=== PATIENT | female | born 1990 | race African-American/Black ===

== ENCOUNTER 2017-01-27 12:20 | Emergency (ER) | payer SELFPAY ==
[~2017-01-27 12:20] MED LIST: METO10TA81 PO
[2017-01-27 12:34] VITALS: BP 105/55
[2017-01-27] MEDS ORDERED: METH-37 PO (13:08)
--- NOTE | 2017-01-27 13:08 | PHYS DOC ---
Past Medical History Past Medical History: No Pertinent History Past Surgical History: Tonsillectomy, Tubal ligation Smoking: Cigar Alcohol Use: None Drug Use: Marijuana Adult General Chief Complaint Chief Complaint: HAND PROBLEM HPI HPI Patient is a 26 year old female who presents with right arm pain and numbness for 2 weeks. She reports pain in the right shoulder, wrist, and thumb with numbness in the right upper arm laterally and in the right thumb. She denies any injury. 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 She also works bent over at her seat. She arrives to the emergency department wearing a velcro wrist brace that helps somewhat with the pain. She denies pain in her neck. She has been taking ibuprofen without relief of her pain. She is right-hand dominant. She does not have a PCP. Review of Systems Review of Systems Constitutional: Denies fever or chills. [] Musculoskeletal: Denies back pain or neck pain. Reports Integument: Denies rash or skin lesions. [] Neurologic: Denies headache, focal weakness or sensory changes. [] Endocrine: Denies polyuria or polydipsia. [] Psych: Denies anxiety or depression. [] All systems reviewed and negative unless otherwise stated in the HPI. Allergies Allergies Allergies Coded Allergies Type Severity Reaction Last Updated Verified banana Allergy Unknown swelling 05/27/14 Yes sulfamethoxazole Allergy Unknown rash 05/27/14 Yes trimethoprim Allergy Unknown rash 05/27/14 Yes Physical Exam Physical Exam Constitutional: Well developed, well nourished, no acute distress, non-toxic appearance. [] HENT: Normocephalic, atraumatic, oropharynx moist. [] Eyes: PERRLA, EOMI, conjunctiva normal, no discharge. [] Neck: Normal range of motion, no tenderness, supple, no stridor. There is spasm of the paraspinal muscles, particularly on the right side. Skin: Warm, dry, no erythema, no rash. [] Back: No midline tenderness, no CVA tenderness. [] Extremities: There is tenderness over the right trapezius with muscle spasm, right wrist dorsum, and the right 1st MCP joint. Decreased flexion of the wrist , otherwise normal ROM for RUE. 2+ radial and ulnar pulses. Less than 2 second capillary refill in the fingers. Light touch sensation intact distally and proximally. The patient was unable to perform the Phalen maneuver due to pain with flexion of the wrist. Negative Tinel sign. Neurologic: Alert and oriented X 3, normal motor function, normal sensory function, no focal deficits noted. [] Psychologic: Affect normal, judgement normal, mood normal. [] Current Patient Data Vital Signs Vital Signs Date Time Temp Pulse Resp B/P Pulse Ox O2 Delivery O2 Flow Rate FiO2 01/27/17 12:34 98.7 78 18 98 Room Air 98.7 EKG EKG [] Radiology/Procedures Radiology/Procedures [] Course & Med Decision Making Course & Med Decision Making Pertinent Labs and Imaging studies reviewed. (See chart for details) The patient presents with RUE pain and intermittent numbness without injury. On exam, she has spasms of the muscles of the neck and right shoulder. Her symptoms are consistent with cervical radiculopathy. She is provided with a Velcro thumb spica splint to decrease movement in her wrist and thumb to help with the pain in the wrist and thumb. She is discharged with prescription for Robaxin. She is instructed to apply heat, massage, and stretch. Return precautions were discussed. She verbalizes understanding and agrees with plan. Dragon Disclaimer Dragon Disclaimer This electronic medical record was generated, in whole or in part, using a voice recognition dictation system. Departure Departure Impression: Primary Impression: Arm pain, right Additional Impression: Cervical radiculopathy Disposition: HOME, SELF-CARE Condition: STABLE Referrals: NO PCP (PCP) Patient Instructions: Cervical Radiculopathy, [id number] Additional Instructions: Your pain and numbness are likely due to pressure on a nerve from tight muscles in your neck. This is called cervical radiculopathy. Please wear the provided wrist and thumb brace to decrease movement to help with your pain. Please take the prescribed muscle relaxer to help decrease the tension in your neck. Do not drive or operate heavy machinery while taking this medication. You may apply heat to the neck and shoulder muscles to help relax them as well. Practice gentle stretching and light massage. Please follow-up with a primary care provider within the next week if your symptoms continue. Return to the emergency department if you have any new or concerning symptoms. Scripts Methocarbamol (Robaxin)500 Mg [id number] Mg PO QID #20 TAB Prov:SURJIT LOPEZ 01/27/17 Problem Qualifiers SURJIT LOPEZ Jan 27, 2017 13:08
== END 2017-01-27 13:18 | disposition home or self-care (01) ==
LOC: ER 12:20
DX: M79.601 Pain in right arm (principal); M54.12 Radiculopathy, cervical region; M25.511 Pain in right shoulder; M25.531 Pain in right wrist; M79.644 Pain in right finger(s); F12.10 Cannabis abuse, uncomplicated; F17.210 Nicotine dependence, cigarettes, uncomplicated; Z88.1 Allergy status to other antibiotic agents; Z91.018 Allergy to other foods
CPT/HCPCS: 29125; 99283-25

== ENCOUNTER 2018-10-11 15:57 | Emergency (ER) | payer SELFPAY ==
[~2018-10-11] VITALS: Ht 154.9 cm; Wt 59.0 kg
[~2018-10-11 15:57] MED LIST changes: +METH-37 PO
[2018-10-11 16:14] VITALS: BP 112/78
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
[2018-10-11] MEDS ORDERED: MELO7.5T5 PO (17:22)
[2018-10-11] MEDS ORDERED: CYCL5TAB PO (17:22)
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
== END 2018-10-11 17:47 | disposition home or self-care (01) ==
LOC: ER 15:57
DX: M54.6 Pain in thoracic spine (principal); M54.5 Low back pain; Z88.1 Allergy status to other antibiotic agents; Z88.2 Allergy status to sulfonamides; Z91.018 Allergy to other foods; V43.52XA Car driver injured in collision with other type car in traffic accident, initial encounter; Y93.89 Activity, other specified; Y92.410 Unspecified street and highway as the place of occurrence of the external cause; Y99.8 Other external cause status
CPT/HCPCS: 72072; 72100; 99283

== ENCOUNTER 2018-10-14 10:47 | Emergency (ER) | payer SELFPAY ==
[~2018-10-14] VITALS: Ht 157.5 cm; Wt 56.7 kg
[~2018-10-14 10:47] MED LIST changes: +CYCL5TAB PO; +MELO7.5T5 PO
[2018-10-14 10:55] VITALS: BP 113/65
[2018-10-14] MEDS ORDERED: ORPHENADRINE CITRATE 60 MG/2 ML VIAL. IM ONE (12:15)
[2018-10-14] MEDS ORDERED: KETOROLAC 60 MG/2 ML VIAL. IM ONE (12:15)
[2018-10-14] MEDS ORDERED: HYDR-2761 PO (12:54)
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
== END 2018-10-14 12:58 | disposition home or self-care (01) ==
LOC: ER 10:47
DX: G43.909 Migraine, unspecified, not intractable, without status migrainosus (principal); M54.12 Radiculopathy, cervical region; F17.210 Nicotine dependence, cigarettes, uncomplicated; Z88.2 Allergy status to sulfonamides; Z88.1 Allergy status to other antibiotic agents; Z91.018 Allergy to other foods
CPT/HCPCS: 96372; 99283; J1885; J2360

== ENCOUNTER 2019-01-14 22:17 | Emergency (ER) | payer SELFPAY ==
[~2019-01-14] VITALS: Ht 157.5 cm; Wt 52.2 kg
[~2019-01-14 22:17] MED LIST changes: +HYDR-2761 PO
[2019-01-14 23:04] VITALS: BP 167/105
[2019-01-14] MEDS ORDERED: HYDR-2761 PO (23:17)
--- NOTE | 2019-01-14 23:18 | PHYS DOC ---
Past Medical History Past Medical History: No Pertinent History Past Surgical History: No Surgical History Alcohol Use: None Drug Use: Marijuana Adult General Chief Complaint Chief Complaint: TOOTH ACHE OR PAIN HPI HPI Patient is a 28 year old AA male who presents to emergency room with complaints of right upper dental pain. Patient states she was seen at [facility] yesterday and prescribed penicillin 500 mg 3 times a day and ibuprofen 800 mg 3 times a day. Patient states that ibuprofen is not helping her pain. She denies any fever, nausea, vomiting or difficulty breathing. Currently she rates her pain a 10 out of 10. She denies any alleviating factors. She denies any drainage from her tooth. Patient reports that she has a root canal scheduled at [facility] for next Thursday. Review of Systems Review of Systems Constitutional: Denies fever or chills [] Eyes: Denies changes HENT: see HPI Integument: Denies rash or skin lesions [] Neurologic: Denies headache, Current Medications Current Medications Current Medications Medications (Trade) Dose Ordered Sig/Priscilla Start Time Stop Time Status Last Admin Dose Admin Acetaminophen/ Hydrocodone Bitart (Lortab 5/325) 1 tab 1X ONCE 01/14/19 23:30 01/14/19 23:31 DC 01/14/19 23:31 1 TAB Allergies Allergies Allergies Coded Allergies Type Severity Reaction Last Updated Verified banana Allergy Severe swelling 01/14/19 Yes sulfamethoxazole Allergy Intermediate rash 01/14/19 Yes trimethoprim Allergy Intermediate rash 01/14/19 Yes Physical Exam Physical Exam Constitutional: Well developed, well nourished, no acute distress, non-toxic appearance, pt tearful. [] HENT: Normocephalic, atraumatic, bilateral external ears normal, oropharynx moist, no oral exudates, nose normal; left upper gingival tenderness, no visible abscess, mild swelling of left upper lip. [] Eyes: PERRLA, EOMI, conjunctiva normal, no discharge. [] Neck: Normal range of motion, no stridor. [] Lungs & Thorax: Respirations even and unlabored, no retractions Skin: Warm, dry, no erythema, no rash. [] Neurologic: Alert and oriented X 3, no focal deficits noted. [] Psychologic: Affect normal, judgement normal, mood normal. [] EKG EKG [] Radiology/Procedures Radiology/Procedures [] Course & Med Decision Making Course & Med Decision Making Pertinent Labs and Imaging studies reviewed. (See chart for details) Dx: dentalgia He was given 1 hydrocodone in the emergency department. She was encouraged to continue taking the amoxicillin and ibuprofen that was prescribed by [facility]. Prescription for hydrocodone 5/325 mg tablets was written #12. Return to the emergency room if she develops fever or symptoms worsen. Follow up with [facility] next Thursday for your canal as planned. [] Dragon Disclaimer Dragon Disclaimer This electronic medical record was generated, in whole or in part, using a voice recognition dictation system. Departure Departure Impression: Primary Impression: Dentalgia Disposition: HOME, SELF-CARE Condition: STABLE Referrals: NO PCP (PCP) Patient Instructions: Dental Pain, [id number] Additional Instructions: Prescription and use as directed. Return to the emergency room if she develops fever or symptoms worsen. Follow up with [facility] next Thursday for your root canal as planned. [] Scripts Hydrocodone Bit/Acetaminophen (HYDROCODONE-APAP 5-325 ) 1 Tab Tablet 1 TAB PO PRN Q6HRS PRN for PAIN for 3 Days, #12 TAB 0 Refills Prov: CLAIRE KISER BUMP GRADER OPERATOR 01/14/19 CLAIRE KISER BUMP GRADER OPERATOR Jan 14, 2019 23:18
[2019-01-14] MEDS ORDERED: HYDROcodone/APAP 5/325MG 1 TAB TABLET PO ONE (23:30)
== END 2019-01-14 23:32 | disposition home or self-care (01) ==
LOC: ER 22:17
DX: K08.89 Other specified disorders of teeth and supporting structures (principal); Z88.1 Allergy status to other antibiotic agents; Z88.2 Allergy status to sulfonamides; Z91.018 Allergy to other foods
CPT/HCPCS: 99283

== ENCOUNTER 2021-05-25 02:45 | Emergency (ER) | payer SELFPAY ==
[~2021-05-25] VITALS: Ht 157.5 cm; Wt 56.8 kg
[2021-05-25] MEDS ORDERED: BUTALB/APAP/CAFEIN 50/325/40MG TABLET. PO ONE (03:15)
--- NOTE | 2021-05-25 03:18 | RAD ---
XR CHEST 1V INDICATION: Reason: cough, COVID PUI / Spl. Instructions: / History: . COMPARISON STUDY: None. FINDINGS: Lungs: Normal lung volume. No pulmonary mass or consolidation. The tracheobronchial tree and hilar st ructures are normal. Pleura: No pleural effusion or pneumothorax. Heart and Mediastinum: The cardiomediastinal silhouette is normal. The great vessels of the thorax ar e normal. Bones and Soft Tissues: The bones and soft tissues are within normal limits. IMPRESSION: No acute cardiopulmonary process. Electronically signed by: Jose Alejandro Lubin MD (05/25/2021 3:15 AM) [facility]
[2021-05-25 03:59] VITALS: BP 128/86
[2021-05-25] MEDS ORDERED: BUTA1TAB23 PO (04:10)
[2021-05-25] MEDS ORDERED: ONDA4TAB12 PO (04:10)
--- NOTE | 2021-05-25 04:11 | PHYS DOC ---
Past Medical History Past Medical History: No Pertinent History Past Surgical History: No Surgical History, Tonsillectomy Smoking Status: Current Every Day Smoker Alcohol Use: None Drug Use: Marijuana Social History Narrative: over 24/hr ago General Adult EDM: Chief Complaint: MULTIPLE COMPLAINTS HPI: HPI: Patient is a 31 year old [f__sex] who presents with [] Review of Systems: Review of Systems: Constitutional: Denies fever or chills. [] Eyes: Denies change in visual acuity. [] HENT: Denies nasal congestion or sore throat. [] Respiratory: Denies cough or shortness of breath. [] Cardiovascular: Denies chest pain or edema. [] GI: Denies abdominal pain, nausea, vomiting, bloody stools or diarrhea. [] : Denies dysuria. [] Musculoskeletal: Denies back pain or joint pain. [] Integument: Denies rash. [] Neurologic: Denies headache, focal weakness or sensory changes. [] Endocrine: Denies polyuria or polydipsia. [] Lymphatic: Denies swollen glands. [] Psychiatric: Denies depression or anxiety. [] Heart Score: Risk Factors: Risk Factors: DM, Current or recent (<one month) smoker, HTN, HLP, family history of CAD, obesity. Risk Scores: Score 0 - 3: 2.5% MACE over next 6 weeks - Discharge Home Score 4 - 6: 20.3% MACE over next 6 weeks - Admit for Clinical Observation Score 7 - 10: 72.7% MACE over next 6 weeks - Early Invasive Strategies Current Medications: Current Medications Medications (Trade) Dose Ordered Sig/Priscilla Start Time Stop Time Status Last Admin Dose Admin Acetaminophen/ Butalbital/ Caffeine (Fioricet) 1 tab 1X ONCE 05/25/21 03:15 05/25/21 03:16 DC 05/25/21 03:20 1 TAB Allergies: Allergies: Allergies Coded Allergies Type Severity Reaction Last Updated Verified banana Allergy Severe swelling 01/14/19 Yes sulfamethoxazole Allergy Intermediate rash 01/14/19 Yes trimethoprim Allergy Intermediate rash 01/14/19 Yes Physical Exam: PE: Constitutional: Well developed, well nourished, no acute distress, non-toxic appearance. [] HENT: Normocephalic, atraumatic, bilateral external ears normal, oropharynx moist, no oral exudates, nose normal. [] Eyes: PERRLA, EOMI, conjunctiva normal, no discharge. [] Neck: Normal range of motion, no tenderness, supple, no stridor. [] Cardiovascular:Heart rate regular rhythm, no murmur [] Lungs & Thorax: Bilateral breath sounds clear to auscultation [] Abdomen: Bowel sounds normal, soft, no tenderness, no masses, no pulsatile mas ses. [] Skin: Warm, dry, no erythema, no rash. [] Back: No tenderness, no CVA tenderness. [] Extremities: No tenderness, no cyanosis, no clubbing, ROM intact, no edema. [] Neurologic: Alert and oriented X 3, normal motor function, normal sensory function, no focal deficits noted. [] Psychologic: Affect normal, judgement normal, mood normal. [] Current Patient Data: Vital Signs: Vital Signs Date Time Temp Pulse Resp B/P (MAP) Pulse Ox O2 Delivery O2 Flow Rate FiO2 05/25/21 02:47 98.7 84 18 128/78 (125) 98 Room Air 98.7 EKG: EKG: [] Radiology/Procedures: Radiology/Procedures: [] Course & Med Decision Making: Course & Med Decision Making Pertinent Labs and Imaging studies reviewed. (See chart for details) [] Dragon Disclaimer: [facility] Disclaimer: This electronic medical record was generated, in whole or in part, using a voice recognition dictation system. Departure Departure Impression: Primary Impression: Viral syndrome Additional Impressions: Headache Qualified Codes: R51.9 - Headache, unspecified Nausea Suspected 2019 novel coronavirus infection Disposition: HOME / SELF CARE / HOMELESS Condition: STABLE Referrals: NO PCP (PCP) Patient Instructions: Headache, FAQs, Nausea, Adult, [id number], Viral Syndrome Additional Instructions: You have been tested for or diagnosed with COVID-19. It is an infection caused by a new type of coronavirus. COVID-19 will cause cold-like or mild flu symptoms in most. It can cause more severe symptoms like problems breathing in some. There is no treatment for COVID-19. The body will clear the infection over time. Self-care will help to ease discomfort. Steps to Take: Self-Care Rest as needed. Healthy habits may help you feel better. Steps include: Choose healthy foods including fruits and vegetables. Drink water throughout the day. Get plenty of sleep each night. If you smoke, try to quit. It may ease breathing. Avoid alcohol. Keep Others Healthy The virus can spread to others. Droplets are released every time you sneeze or cough. The droplets can get into the mouth, nose, or eyes of people near you and lead to infection. To lower the chances of spreading COVID-19 to others: Stay at home until your doctor has said it is safe to leave. If you tested positive this will mean staying isolated until both of the following are true: At least 7 days have passed since the start of illness. You are free of fever for at least 72 hours without the use of medicine. During this time: - Avoid public areas, events, or transportation. Do not return to work or school until your doctor has said it is safe to do so. - Call ahead if you need to go to a medical center. Let them know you may have COVID-19. It will help them guide you where to go. They may also ask you to wear a facemask when you come to the office. - If you call for emergency medical services, let them know you may have COVID- 19. While at home: - Try to avoid close contact with others. Stay about 6 feet away. - If possible, spend most of your time in a separate room from others. - Use a face mask if you will be in close contact with others such as sharing a room or vehicle. - Have someone wipe down common surfaces in the home. Use household hydraulic controls technician every day on areas like doorknobs, counters, or sinks. - Cough or sneeze into a tissue. Throw the tissue away right after use. If a tissue is not available, cough or sneeze into your elbow. - Wash your hands often. Wash them after sneezing or coughing. Use soap and water and wash for at least 20 seconds. Alcohol based hand industrial sweeper cleaner can be used if soap and water is not available. - Do not prepare food for others. Avoid sharing personal items like forks, spoons, or toothbrushes. - Avoid close contact with pets while you are sick. There is no evidence of the virus passing to pets. This is a safety step until more is known about this virus. Isolation can be frustrating. Social interaction can help. Keep in touch with friends and family through phone and tech options. You can still interact with others in your home, just keep a safe distance of about 6 feet. Follow-up: Your doctors office will check in with you to see if there are any changes in your health. You may be asked to keep track of symptoms to share with them. They will also let you know when you are clear to be in public again. Problems to Look Out For: Contact your doctor if your recovery is not going as you expect. Get emergency care if you have problems such as: - Trouble breathing - Nonstop chest pain or pressure - Changes in awareness, confusion, or problems waking - Lips or face have bluish color - Worsening of symptoms If you think you have an emergency, call for emergency medical services right away. As taken from [facility] Butalb/Acetaminophen/Caffeine ([id number]-VCOY 50-325-40) 1 Each Tablet 1 EACH PO Q6HRS PRN for HEADACHE, #10 TAB Prov: STEVEN ORDOÑEZ DO 05/25/21 Ondansetron (ONDANSETRON ODT) 4 Mg Tab.rapdis 1 TAB PO PRN Q6-8HRS PRN for NAUSEA, #16 TAB Prov: STEVEN ORDOÑEZ DO 05/25/21 STEVEN ORDOÑEZ DO May 25, 2021 04:11
--- NOTE | 2021-05-26 17:13 | NUR ---
IP: Informed pt of negative covid test. pt verbalized understanding.
== END 2021-05-25 04:28 | disposition home or self-care (01) ==
LOC: ER 02:45
DX: B34.9 Viral infection, unspecified (principal); R51.9 Headache, unspecified; F17.200 Nicotine dependence, unspecified, uncomplicated; Z20.822 Contact with and (suspected) exposure to COVID-19; Z91.018 Allergy to other foods; Z88.2 Allergy status to sulfonamides; Z88.1 Allergy status to other antibiotic agents
CPT/HCPCS: 71045; 99284; U0003; U0005

== ENCOUNTER 2021-10-10 09:23 | Observation (INO) | payer SELFPAY ==
[~2021-10-10] VITALS: Ht 157.5 cm; Wt 66.7 kg
[~2021-10-10 09:23] MED LIST changes: +BUTA1TAB23 PO; +ONDA4TAB12 PO
[2021-10-10] MEDS ORDERED: LIDOCAINE (700MG/PATCH) PATCH. TD ONE (11:30)
[2021-10-10] MEDS ORDERED: CYCLOBENZAPRINE 10 MG TABLET. PO ONE (11:30)
[2021-10-10] MEDS ORDERED: KETOROLAC 60 MG/2 ML VIAL. IM ONE (11:30)
[2021-10-10] MEDS ORDERED: methylPREDNISolone SOD SUCC PF 125 MG/2 ML VIAL. IM ONE (11:30)
[2021-10-10] MEDS ORDERED: ACETAMINOPHEN 500 MG TABLET PO ONE (11:30)
[2021-10-10 11:51] LABS: BILIRUBIN,URINE NEGATIVE (NEG); CLARITY,URINE CLEAR; COLOR,URINE YELLOW; NITRITE,URINE NEGATIVE (NEG); PROTEIN,URINE NEGATIVE (NEG-TRACE); UROBILINOGEN,URINE 0.2 mg/dL (0.2 mg/dL)
[2021-10-10 12:08] LABS: BACTERIA,URINE MOD /HPF (0-FEW); RBC,URINE 0 /HPF (0-2)
[2021-10-10 12:19] LABS: PREG TEST PT QUAL NEGATIVE (NEG)
[2021-10-10] MEDS ORDERED: MORPHINE SULFATE 4 MG/ML INJ. IM ONE (12:30)
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
[2021-10-10 15:31] LABS: CALCIUM 8.6 mg/dL (8.5-10.1); CREATININE 0.5 mg/dL (0.6-1.0); POTASSIUM 3.6 mmol/L (3.5-5.1)
[2021-10-10 15:33] LABS: BASO % 0 % (0-3); EOS # 0.2 x10^3/uL (0.0-0.7); EOS % 2 % (0-3); HEMATOCRIT 41.2 % (36.0-47.0); HEMOGLOBIN 13.9 g/dL (12.0-15.5); LYMPH % 27 % (24-48); MEAN CORPUSCULAR HEMOGLOBIN 31 pg (25-35); MEAN CORPUSCULAR HGB CONC 34 g/dL (31-37); MEAN CORPUSCULAR VOLUME 92 fL (79-100); MONO # 0.8 x10^3/uL (0.0-1.1); MONO % 7 % (0-9); NEUT # 7.2 x10^3/uL (1.8-7.7); NEUT % 64 % (31-73); PLATELET COUNT 286 x10^3/uL (140-400); RED BLOOD COUNT 4.48 x10^6/uL (3.50-5.40); RED CELL DISTRIBUTION WIDTH 13.4 % (11.5-14.5); WHITE BLOOD COUNT 11.3 x10^3/uL (4.0-11.0)
[2021-10-10 15:37] LABS: ALBUMIN 3.6 g/dL (3.4-5.0); C-REACTIVE PROTEIN 0.6 mg/L (0-3.3); TOTAL BILIRUBIN 0.3 mg/dL (0.2-1.0); TOTAL PROTEIN 7.2 g/dL (6.4-8.2)
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
[2021-10-10] MEDS ORDERED: ONDANSETRON PF 4 MG/2 ML VIAL. IVP PRN ×2 (16:00→17:45)
[2021-10-10] MEDS ORDERED: ACETAMINOPHEN 325 MG TABLET. PO PRN (17:30)
[2021-10-10 19:00] VITALS: BP 112/72
[2021-10-10] MEDS: CYCLOBENZAPRINE 10 MG TABLET. PO PRN (20:11)
[2021-10-10] MEDS: MORPHINE SULFATE 2 MG/ML INJ. IVP PRN ×2 (20:11→23:57)
[2021-10-10] MEDS: FAMOTIDINE 20 MG TABLET. PO SCH (20:12)
--- NOTE | 2021-10-10 23:00 | NUR ---
ADMIT NOTE The patient, SARITA GUTIERREZ, 31 y/o, F admitted by LUIS ANTONIO KAY MD, was given written information regarding hospital policies, unit procedures and contact persons; all personal belongings left with patient at time of admission. Patient orientated to room, allergies verified, admission assessment complete, and admit packet reviewed. Patient's pharmacy verified and reports no active medications at this time. Patient in bed resting, bed in lowest/locked position, and call light within reach; no other needs voiced at this time.
[2021-10-10 23:16] VITALS: BP 106/61
[2021-10-11 02:47] VITALS: BP 118/63
[2021-10-11 05:41] LABS: BASO % 0 % (0-3); EOS % 0 % (0-3); HEMATOCRIT 41.1 % (36.0-47.0); HEMOGLOBIN 14.3 g/dL (12.0-15.5); LYMPH # 2.5 x10^3/uL (1.0-4.8); LYMPH % 18 % (24-48); MEAN CORPUSCULAR HEMOGLOBIN 32 pg (25-35); MEAN CORPUSCULAR HGB CONC 35 g/dL (31-37); MEAN CORPUSCULAR VOLUME 91 fL (79-100); MONO % 7 % (0-9); NEUT # 10.3 x10^3/uL (1.8-7.7); NEUT % 75 % (31-73); PLATELET COUNT 271 x10^3/uL (140-400); RED BLOOD COUNT 4.51 x10^6/uL (3.50-5.40); RED CELL DISTRIBUTION WIDTH 13.2 % (11.5-14.5); WHITE BLOOD COUNT 13.7 x10^3/uL (4.0-11.0)
[2021-10-11 06:22] LABS: CALCIUM 8.6 mg/dL (8.5-10.1); CREATININE 0.5 mg/dL (0.6-1.0); POTASSIUM 3.6 mmol/L (3.5-5.1)
[2021-10-11] MEDS: MORPHINE SULFATE 2 MG/ML INJ. IVP PRN ×3 (06:23→13:43)
[2021-10-11] MEDS: CYCLOBENZAPRINE 10 MG TABLET. PO PRN (06:23)
[2021-10-11] MEDS: methylPREDNISolone SOD SUCC PF 40 MG/ML VIAL. IV SCH ×2 (06:23→13:43)
[2021-10-11 07:00] VITALS: BP 122/68
[2021-10-11] MEDS: FAMOTIDINE 20 MG TABLET. PO SCH (07:59)
[2021-10-11 11:00] VITALS: BP 109/70
[2021-10-11] MEDS ORDERED: FLU VACC QUAD 21-22 (6MOS+) PF 0.5 ML SYRINGE. VAX IM ONE (12:00)
--- NOTE | 2021-10-11 14:07 | RAD ---
MR LUMBAR SPINE WO [id number] History: Reason: BACK PAIN, RADICULOPATHY / Spl. Instructions: / History: Technique: Multiplanar, multi sequential MR imaging was performed of the lumbar spine. Comparison: None Findings: Normal vertebral body height and alignment. No fracture. Conus terminates at the normal location. No evidence of nerve root clumping. L1-L2: No canal or neuroforaminal narrowing. L2-L3: No canal or neuroforaminal narrowing. L3-L4: No canal or neuroforaminal narrowing. Mild facet arthropathy. L4-L5: Small central disc protrusion. Mild facet arthropathy. No canal narrowing. No neuroforaminal narrowing. L5-S1: Small central disc with annular fissure. Mild facet arthropathy. No canal narrowing. No neuro foraminal narrowing. Impression: 1. Mild lumbar spondylosis. 2. L5-S1 small central disc protrusion with annular fissure. Electronically signed by: Tyler Slaughter DO (10/11/2021 2:05 PM) [id number]
[2021-10-11] MEDS ORDERED: TRAM50TA PO (15:43)
[2021-10-11] MEDS ORDERED: METH4TAB2 PO (15:43)
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
--- NOTE | 2021-10-11 16:51 | NUR ---
Patient provided with discharge instructions and prescriptions. Patient transported to vehicle by wheelchair accompanied by family member
== END 2021-10-11 16:45 | disposition home or self-care (01) ==
LOC: ER 09:23 → 4 NORTH 15:57
PROVIDERS: ADMIT Internal Medicine; ATTEND Internal Medicine
DX: M54.40 Lumbago with sciatica, unspecified side (principal); Z20.822 Contact with and (suspected) exposure to COVID-19; R26.9 Unspecified abnormalities of gait and mobility; R20.0 Anesthesia of skin; M25.60 Stiffness of unspecified joint, not elsewhere classified; F17.210 Nicotine dependence, cigarettes, uncomplicated; G89.29 Other chronic pain; M47.816 Spondylosis without myelopathy or radiculopathy, lumbar region; M51.27 Other intervertebral disc displacement, lumbosacral region; Z23 Encounter for immunization; Z71.85 Encounter for immunization safety counseling; Z98.51 Tubal ligation status; Z79.899 Other long term (current) drug therapy; Z98.890 Other specified postprocedural states; X50.1XXA Overexertion from prolonged static or awkward postures, initial encounter; Y92.89 Other specified places as the place of occurrence of the external cause; Y93.89 Activity, other specified; Y99.8 Other external cause status
CPT/HCPCS: 36415; 72148; 80048; 80053; 81001; 84703; 85025; 85651; 86140; 87426; 90471; 90686; 96372; 96374; 96376; 97162; 99284; G0378; J1885; J2270; J2920; J2930; U0003; U0005; G0379